=== PATIENT | male | born 1970 | race Caucasian/White ===

== ENCOUNTER → 2018-06-07 | Outpatient (CLI) | payer MEDICAID | LOC: FCPNEURO 20:00 ==

== ENCOUNTER → 2018-07-14 | Outpatient (CLI) | payer MEDICAID | LOC: FCPNEURO 21:30 | PROVIDERS: ATTEND Psychiatry & Neurology Sleep Medicine | DX: G47.31 Primary central sleep apnea (principal); G47.33 Obstructive sleep apnea (adult) (pediatric) ==